=== PATIENT | male | born 1980 ===

== ENCOUNTER 2016-07-28 17:07 | Emergency (ER) | payer SELFPAY ==
[~2016-07-28 17:07] MED LIST: ACTOS30 MG PO; ADULT LOW DOSE81 MG PO; ALAVERT10 MG PO; ALBUTEROL SULFATE IH; AMBIEN10 MG PO; AMBIEN5 MG PO; ASPIR-LOW81 MG PO; BACTRIM DS TABL1 TAB PO; BACTRIM DS1 TAB PO; BYSTOLIC5 MG; CLEOCIN HCL300 MG PO; CYCLOBENZAPRINE10 M1 PO; FLEXERIL5 MG PO; GLIPIZIDE10 MG; GLUCOPHAGE500 MG PO; GLYBURIDE5 MG PO; LANTUS100 U/ML SC; LEVAQUIN750 M1 PO; LEVAQUIN750 MG PO; LISINOPRIL10 MG PO; LISINOPRIL5 MG; LISINOPRIL5 MG PO; LORATADINE PO; MEN'S ONE DAIL1 EACH PO; MOTRIN600 MG PO; MOTRIN800 MG PO; NITROSTAT0.4 MG SL; NORCO 5-325 TA1 EACH PO; NORCO 5/325 TAB1 TAB PO; POLYTRIM EYE DR10 ML LEFT EYE; POLYTRIM EYE DR10 ML RIGHT EYE; PROAIR HFA8.5 GM IH; PROVENTIL HFA6.7 GM IH; REGLAN10 MG PO; SIMVASTATIN10 MG PO; TESSALON200 MG PO; TRAMADOL HCL50 MG PO; TRAZODONE100 MG PO; VALACYCLOVIR1000 MG PO; VALTREX1000 MG PO; ZANTAC150 MG PO; ZOCOR10 MG PO
[2016-07-28 18:10] LABS: BASO % 0.5 % (0-2); BASO ABSOLUTE COUNT 0.1 tho/cmm (0.0-0.2); EOS % 3.6 % (0-7); EOSINOPHIL ABSOLUTE COUNT 0.4 tho/cmm (0.0-0.7); HCT-HEMATOCRIT 45.7 % (36.0-53.5); HGB-HEMOGLOBIN 15.6 gm/dl (13.5-17.0); IMMATURE GRANULOCYTES ABSOLUTE 0.03 tho/cmm (0-0.03); IMMATURE GRANULOCYTES PERCENT 0.3 % (0-0.3); LYMPH % 18.6 % (20-45); LYMPH ABSOLUTE COUNT 2.1 tho/cmm (0.8-4.5); MCH (MEAN CORPUSCULAR HGB) 29.2 pg (28.0-32.0); MCHC MEAN CORPUSCULAR HGB CONC 34.1 % (32.0-36.0); MCV (MEAN CELL VOLUME) 85.4 fl (82.0-96.0); MEAN PLATELET VOLUME 9.4 cmc (9.4-12.4); MONO % 9.6 % (0-12); MONOCYTE ABSOLUTE COUNT 1.1 tho/cmm (0.0-1.2); NEUTROPHIL ABSOLUTE COUNT 7.6 tho/cmm (1.6-8.0); NEUTROPHIL-AUTOMATED 7.6 tho/cmm (1.6-8.0); NEUTROPHILS % 67.4 % (40-80); PLATELET COUNT 379 tho/cmm (150-450); RED BLOOD COUNT 5.35 mil/cmm (4.40-5.70); RED CELL DISTRIBUTION WIDTH 12.8 % (12.4-16.4); WHITE BLOOD COUNT 11.3 tho/cmm (4.0-10.0)
[2016-07-28 18:34] LABS: ANION GAP 13 mmol/L (0-20); BLOOD UREA NITROGEN 16 mg/dl (6-24); CALCIUM 8.2 mg/dl (8.5-10.5); CARBON DIOXIDE-VENOUS 24 mmol/L (22-32); CHLORIDE 107 mmol/l (96-110); CREATININE 0.76 mg/dl (0.60-1.30); GLUCOSE 318 mg/dL (70-110); POTASSIUM 4.6 mmol/L (3.7-5.1); SODIUM 139 mmol/L (135-145); eGFR VALUE FOR BLACK >90 mL/Min
[2016-07-28] MEDS ORDERED: BACTRIM DS TAB1 EAC2 PO (18:41)
[2016-07-28] MEDS ORDERED: NORCO 5-325 TA1 EACH PO (18:41)
== END 2016-07-28 18:56 ==
LOC: EDMED 17:07
PROVIDERS: Nurse Practitioner Family
PROC: 0H90XZZ Drainage of Scalp Skin, External Approach (ICD-10-PCS; principal; 2016-07-28)
DX: L02.811 Cutaneous abscess of head [any part, except face] (principal); E11.9 Type 2 diabetes mellitus without complications; I10 Essential (primary) hypertension